=== PATIENT | female | born 1975 | race Caucasian/White ===

== ENCOUNTER 2018-03-01 14:36 | Emergency (ER) | payer OTHER ==
[~2018-03-01] VITALS: Ht 162.6 cm; Wt 110.2 kg
[2018-03-01 14:52] VITALS: BP 154/89; Ht 162.6 cm; Wt 110.2 kg
== END 2018-03-01 15:32 | disposition home or self-care (01) ==
LOC: ED 14:36
DX: Z76.0 Encounter for issue of repeat prescription (principal); J45.909 Unspecified asthma, uncomplicated